=== PATIENT | female | born 2000 | race Caucasian/White ===

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

== ENCOUNTER 2023-03-13 11:40 | Outpatient (AMB) | payer OTHER, SELFPAY ==
[2023-03-13 12:31] VITALS: BP 120/86; PULSE 74; TEMP 36.3; O2SAT 99; BMI 31.4
--- NOTE | 2023-03-13 12:31 | AM.OFFWIN_ITS ---
Intake Vital Signs 03/13/23 12:31 Height 5 ft 5 in Weight 85.729 kg BMI 31.4 BP 120/86 Blood Pressure Location Lt brachial Position Sitting Pulse 74 Pulse Source Pulse Oximeter Temp 97.3 F Temp Source Temporal Artery Scan Pulse Oximetry (%) 99 Intake Visit Reasons: [employer] Cold Symptoms, Red Nostril [id number] Intake Note: pt is here for c.o cough with congestion Patient Tobacco Use Status: Never used Tobacco Allergies No Known Allergies Allergy (Verified 03/13/23 12:32) Do you need a note to return to daycare/school/sports/work: Yes HPI HPI Comments History of Present Illness Details 1308 22-year-old female presents with fatigue , malaise, redness under her nose from blowing her nose, cough usually dry but had times clear productive sputum for the past few days, 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 Negative at home COVID test. Denies fevers, chills, nausea, vomiting, abdominal pain, chest pain and shortness of breath Physical exam benign Likely viral illness versus viral bronchitis. Unlikely pneumonia, PE, no signs of respiratory distress , ACS Plan supportive measures. Will do a COVID test here. Educated patient on diagnosis and treatment plan, answered all question, patient verbalizes understanding. At this time patient will be discharged home, advised to return with new or worsening symptoms. Educated on worrisome signs and symptoms and when to return. At this time I feel comfortable discharge home. [facility] Medical History No known health problems Social History Patient Tobacco Use Status: Never used Tobacco Review of Systems Const Details: Constitutional : No Weight loss, No Fever, No Chills, + Fatigue, + Malaise ENT/Mouth : No sore throat, + Rhinorrhea Eyes: No Eye Pain, No Swelling, No Redness Cardiovascular : No Chest Pain, No SOB, No Dyspnea on Exertion, No Orthopnea, No Edema, No Palpitations Respiratory : + Cough, No Sputum, No Wheezing Gastrointestinal : No Nausea, No Vomiting, No Diarrhea, No Constipation, No abdominal Pain, No Hematochezia, No Melena Genitourinary : No Dysuria, No Urinary Frequency, No Hematuria, Musculoskeletal : No joint pain, No Myalgias, No Joint Swelling Skin : No Skin Lesions, No rash Neuro : No Weakness, No Numbness, No Dizziness, No Headache Psych : No Anxiety/Panic, No Depression All other systems reviewed and are negative All systems reviewed & are unremarkable except as noted in HPI and below Physical Exam Vital Signs: Last Vital Signs Temp 97.3 F 03/13/23 12:31 Pulse 74 03/13/23 12:31 BP 120/86 03/13/23 12:31 Pulse Ox 99 03/13/23 12:31 BMI result Body Mass Index 31.4 vss Appearance: Alert.? Oriented X3.? No acute distress.? Head: Normocephalic, atraumatic, no step-offs or deformities Eyes: Pupils equal, round and reactive to light.? ENT: Pharynx normal.? Neck: Normal inspection.? Neck supple.? CVS: Normal heart rate and rhythm.? Pulses normal.? Respiratory: No respiratory distress.? Breath sounds normal.? Abdomen: Soft and nontender.? Skin: Skin warm and dry.? Normal skin color.? Normal skin turgor.? Extremities: No lower extremity edema.? No calf ttp. 5/5 strength to bilateral upper and lower extremities Neuro: Oriented X 3.? No motor deficit.? No sensory deficit. CN 2-12 intact Assessment & Plan Assessment & Plan (1) Viral illness: Code(s): B34.9 - Viral infection, unspecified Plan Take your medications as prescribed. If you were prescribed antibiotics today, it is important that you take your medication to their entirety, do not skip any doses, do not finish them early. Follow-up with your primary care provider this week. Return to the emergency department with new or worsening symptoms. Such as fevers, chills, chest pain, shortness of breath, nausea, vomiting, dizziness, headache, vision changes, lethargy In case of emergency call 911 Orders: Orders [facility]ax[facility] Covid-19 Ag Today B34.9 - Viral infection, unspecified Coding Level of Care Code Est Pt Level 3 (81661) Diagnoses Viral illness B34.9
== END 2023-03-13 13:11 | disposition home or self-care (01) ==
PROVIDERS: Visit Provider Physician Assistant
DX: B34.9 Viral infection, unspecified (principal)
CPT/HCPCS: 99213

== ENCOUNTER 2023-03-13 12:54 | Outpatient (REF) | payer OTHER, SELFPAY ==
[2023-03-13 13:17] LABS: Binax Now Covid-19 Ag Negative (Negative)
[2023-03-13 13:18] LABS: Binax Internal Control QC Valid; Binax Performed by: PAULP
== END 2023-03-13 12:55 | disposition home or self-care (01) ==
LOC: HO.HMGCLDS 12:54
PROVIDERS: Visit Provider Physician Assistant
DX: Z11.52 Encounter for screening for COVID-19 (principal); B34.9 Viral infection, unspecified
CPT/HCPCS: 87811; C9803